=== PATIENT | female | born 1930 | race Caucasian/White ===

== ENCOUNTER 2019-01-06 14:51 | Emergency (ER) | payer MEDICARE, OTHER ==
[~2019-01-06] VITALS: Ht 157.5 cm; Wt 64.0 kg
[~2019-01-06 14:51] MED LIST: AMLODIPINE BESYL5 MG PO; ARICEPT10 MG PO; ASPIRIN81 MG PO; BENADRYL25 M1; CELEXA20 MG PO; CLONIDINE HCL0.3 MG PO; DONEPEZIL HCL10 MG PO; FAMOTIDINE20 MG PO; HYZAAR 50-12.51 EACH PO; LABETALOL HCL200 MG PO; LEVOTHYROXINE75 MCG PO; LISINOPRIL10 MG PO; NORVASC10 MG PO; SEROQUEL25 MG PO; SIMVASTATIN20 MG PO; SYNTHROID125 MCG PO; TOPROL XL25 MG PO; VITAMIN B-121000 MCG PO
[2019-01-06 17:01] LABS: BASOPHILS % 0.4 % (0.0-1.0); EOSINOPHILS % 0.2 % (0.0-6.0); LYMPHOCYTES # (AUTO) 2.2 (1.0-3.2); LYMPHOCYTES % 21.5 % (18.0-39.1); MEAN CORPUSCULAR HEMOGLOBIN 29.4 pg (28-32); MEAN CORPUSCULAR VOLUME 83.9 fL (81-99); MONOCYTES # (AUTO) 0.7 (0.2-0.8); MONOCYTES % 6.6 % (4.4-11.3); NEUTROPHILS # (AUTO) 7.1 (2.1-6.9); PLATELET COUNT 394 x10e3/uL (140-360); RED BLOOD COUNT 4.77 x10e6/uL (3.6-5.1); RED CELL DISTRIBUTION WIDTH 12.5 % (11.7-14.4)
[2019-01-06 17:14] LABS: BACTERIA,URINE MODERATE /HPF; BILIRUBIN,URINE NEGATIVE (NEGATIVE); CLARITY,URINE CLEAR (CLEAR); COLOR,URINE YELLOW (YELLOW); EPITHELIAL CELLS,URINE MODERATE /LPF; KETONES,URINE NEGATIVE (NEGATIVE); LEUKOCYTE ESTERASE ,URINE NEGATIVE (NEGATIVE); NITRITE,URINE NEGATIVE (NEGATIVE); PROTEIN,URINE DIPSTICK TRACE (NEGATIVE); RBC,URINE 0-5 /HPF (0-5); URINE UROBILINOGEN 0.2 mg/dL (0.2 - 1); WBC,URINE (MAN) 0-5 /HPF (0-5)
[2019-01-06 17:34] LABS: ALBUMIN 4.7 g/dL (3.5-5.0); ALBUMIN/GLOBULIN RATIO 1.6 (0.8-2.0); ANION GAP 18.6 mmol/L (8-16); CALCIUM 10.2 mg/dL (8.4-10.2); CREATININE, SERUM 1.07 mg/dL (0.57-1.11)
[2019-01-06 17:35] LABS: POTASSIUM 2.6 mmol/L (3.5-5.1)
[2019-01-06 17:40] LABS: CREATINE KINASE MB 1.6 ng/mL (0-5.0)
--- NOTE | 2019-01-06 17:47 | Diagnostic Imaging Report ---
Examination: CT head without contrast Clinical Indication: Headache and weakness. Technique: Transaxial noncontrast images from the skull base through the vertex were obtained. Sagittal and coronal reformatted images were done. Dose modulation, iterative reconstruction, and/or weight based adjustment of the mA/kV was utilized to reduce the radiation dose to as low as reasonably achievable. Comparison: The head CTs from 2016 and 2017 not available at this time to compare. Findings: Scalp: No abnormalities. Bones: Intact. No fractures. No blastic or lytic lesions. Brain sulci: Mild volume loss for patient's age. Ventricles: The ventricular size is out of proportion with respect to cerebral convexity sulci, concerning for a communicating type of hydrocephalus, such as normal pressure hydrocephalus. Extra-axial space: No abnormalities. Parenchyma: Chronic lacunar infarcts are seen in the bilateral subinsular regions and bilateral thalami. There are confluent areas of low-attenuation within subcortical and periventricular white matter, nonspecific, but could represent microvascular ischemic disease. No masses, hemorrhage, or acute or chronic cortical based vascular insults. Suprasellar region: No abnormalities. Craniocervical junction: The foramen magnum is patent. No Chiari one malformation. Incidental findings: Atherosclerotic calcification of the cavernous and supraclinoid internal carotid and V4 segments of the bilateral vertebral arteries. Impression: 1. No acute intracranial finding. 2. Mild chronic microvascular ischemic change. 3. Chronic lacunar infarcts, as above. 4. 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 Signed by: Dr. Greta Valdovinos M.D. on 01/06/2019 5:43 PM
--- NOTE | 2019-01-06 18:07 | NUR ---
B/P IN LEFT ARM 212/108 RIGHT ARM 226/104
[2019-01-06] MEDS ORDERED: NIFEDIPINE 10 MG CAP PO ONE (18:30)
[2019-01-06] MEDS ORDERED: POTASSIUM CHLORIDE 20 MEQ TAB CR PO ONE (18:30)
--- NOTE | 2019-01-06 19:21 | NUR ---
WALKING ROUNDS DONE WITH HEIDI JETER
[2019-01-06 21:34] VITALS: BP 148/91
== END 2019-01-06 21:40 | disposition home or self-care (01) ==
LOC: ER 14:51
DX: G44.89 Other headache syndrome (principal); E87.6 Hypokalemia; K52.9 Noninfective gastroenteritis and colitis, unspecified; G30.0 Alzheimer's disease with early onset; F02.80 Dementia in other diseases classified elsewhere, unspecified severity, without behavioral disturbance, psychotic disturbance, mood disturbance, and anxiety; I10 Essential (primary) hypertension
CPT/HCPCS: 36415; 70450; 80053; 81001; 82550; 82553; 83735; 84484; 85025; 93005; 99284